=== PATIENT | female | born 1995 | race Caucasian/White ===

== ENCOUNTER 2016-12-20 09:29 | Inpatient (IN) | payer MEDICAID ==
[~2016-12-20] VITALS: Ht 177.8 cm; Wt 96.0 kg
--- NOTE | 2016-12-20 10:00 | NUR ---
PT PRESENTS TO THE ED WITH THE COMPLAINT OF BLQ ABDOMINAL PAIN WHICH IS PRESSURE LIKE IN QAULITY.
[2016-12-20 10:18] LABS: BASOPHIL % 0.1 % (0-2); PLATELET COUNT 275 x10^3mcL (130-400); RED CELL DISTRIBUTION WIDTH 13.9 % (11.5-14.5)
[2016-12-20 10:25] LABS: CALCIUM 8.7 mg/dL (8.5-10.1); CARBON DIOXIDE 29.6 mmol/L (21-32); CHLORIDE SERUM 106 mmol/L (98-107); CREATININE SERUM 0.9 mg/dL (0.6-1.0); GFR1 > 60 mL/min; GLUCOSE SERUM 114 mg/dL (74-106); POTASSIUM SERUM 4.1 mmol/L (3.5-5.1); SODIUM SERUM 142 mmol/L (136-145)
[2016-12-20 10:30] LABS: ALBUMIN 3.4 g/dL (3.4-5.0); ALKALINE PHOSPHATASE 82 U/L (46-116); ALT/SGPT 76 U/L (14-59); AST/SGOT 28 U/L (15-37); BILIRUBIN TOTAL 0.7 mg/dL (0.20-1.00); LIPASE 89 IU/L (73-393); TOTAL PROTEIN, SERUM 6.9 g/dL (6.4-8.2)
--- NOTE | 2016-12-20 10:33 | NUR ---
PT WENT TO AND FROM CT WITHOUT INCIDENCE
--- NOTE | 2016-12-20 11:54 | NUR ---
REPORT CALLED TO MARIEL JONES ON TELE UNIT AT THIS TIME
--- NOTE | 2016-12-20 12:15 | NUR ---
RECEIVED PT. FROM ER DEPT. A/A/O X4. NO SOB, NO N/V NOTED. DENIES ANY PAIN AT THIS TIME. IV H/L NOTED TO L AC. B/P= 140/69, P= 74, R.R.= 18, T= 99.9, O2 SAT.= 99% (RA). PT. STATED SHE WAS HAVING ABD. PAIN FOR 4 DAYS WITH N/V. SKIN INTACT. NO EDEMA NOTED. PT. IS PLACED ON TELE. MONITOR #[id number] SHOWING NSR. BED IN LOW POS., CALL LIGHT WITHIN REACH. SIDE RAILS UP X3.
[2016-12-20 12:31] LABS: microscopic required? NO
--- NOTE | 2016-12-20 12:40 | NUR ---
2% CHLORHEXIDINE BATH GIVEN PRIOR TO SURGERY.
[2016-12-20 12:55] LABS: urine erythrocyte NEGATIVE (NEGATIVE)
--- NOTE | 2016-12-20 12:57 | NUR ---
LACTIC ACID 2.1, DR CASTANEDA NOTIFIED VIA [facility], WILL FOLLOW UP. PRIMARY NURSE KAREN MADE AWARE.
[2016-12-20 13:09] LABS: AMPHETAMINE QUAL UR NONE DETECTED (NEG <=1000)
[2016-12-20 13:26] VITALS: BP 140/69
[2016-12-20 13:40] VITALS: Ht 177.8 cm; Wt 96.0 kg
[2016-12-20 14:39] LABS: FREE T4 1.08 ng/dL (0.76-1.46); FREE THYROXINE INDEX 2.2 ug/dL (1.4-4.5); T4(THYROXINE) 7.2 ug/dL (4.7-13.3)
[2016-12-20 14:40] LABS: CHOLESTEROL/HDL RATIO 2.9
--- NOTE | 2016-12-20 15:09 | NUR ---
PT. IS BEING TAKEN TO O.R. FOR SURGERY.
[2016-12-20 16:55] LABS: T3 TOTAL 1.29 ng/mL
--- NOTE | 2016-12-20 17:54 | NUR ---
RECEIVED PT. FROM RECOVERY DEPT. (PT. IS S/P LAP. APPENDECTOMY TODAY) AT THIS TIME. PT. APPEARS DROWSY. B/P= 136/83, P= 79, R.R.= 16, T= 98.3, O2 SAT.= 99% (WITH O2 AT 2L NC). ABD. BANDAGES X3 CDI. WILL CONTINUE TO MONITOR. MOTHER AT BEDSIDE. MOTHER WAS UPDATED ON PT.'S CONDITION.
[2016-12-20 18:31] VITALS: BP 142/81
--- NOTE | 2016-12-20 19:25 | NUR ---
RECEIVED PT IN BED ASLEEP BUT EASILY AROUSABLE. LUNGS CTA. NO SOB NOTED. BOWEL SOUNDS HYPOACTIVE. W/ BANDAID X3 TO SX SITES TO ABDOMEN. NO ACTIVE BLEEDING NOTED ON SX SITES. SHE HAS NO C/O PAIN AT THIS TIME. W/ IVF NS AT 140 CC/HR INFUSING VIA [facility]. CALL LIGHT W/IN REACH.
[2016-12-20 21:27] VITALS: BP 135/80
[2016-12-21 05:39] VITALS: BP 113/58
--- NOTE | 2016-12-21 06:09 | NUR ---
PT SLEPT THROUGH THE NIGHT. SHE WAS MEDICATED FOR PAIN X1 W/ RELIEF. SHE AMBULATES TO RESTROOM. PT STATED SHE IS NOT PASSING GAS YET NOR BURPING. NO EPISODE OF N/V. IVF NS AT 140 CC/HR INFUSING WELL VIA [facility]. ALL NEEDS ATTENDED TO.
[2016-12-21 06:37] LABS: BASOPHIL % 0.1 % (0-2); PLATELET COUNT 272 x10^3mcL (130-400)
[2016-12-21 07:18] LABS: CALCIUM 8.2 mg/dL (8.5-10.1); CARBON DIOXIDE 28.8 mmol/L (21-32); CHLORIDE SERUM 104 mmol/L (98-107); CREATININE SERUM 0.7 mg/dL (0.6-1.0); GFR1 > 60 mL/min; GLUCOSE SERUM 104 mg/dL (74-106); MAGNESIUM 1.8 mg/dL (1.8-2.4); PHOSPHOROUS 4.1 mg/dL (2.5-4.9); POTASSIUM SERUM 3.6 mmol/L (3.5-5.1); SODIUM SERUM 141 mmol/L (136-145)
--- NOTE | 2016-12-21 07:30 | NUR ---
RECEIVED PT. IN BED A/A/O X4. NO SOB, NO N/V NOTED. DENIES ANY PAIN AT THIS TIME. NS RUNNING AT 140 CC/HR. VIA IV H/L AT L AC. SCD TO BLE MAINTAINED. BED IN LOW POS., CALL LIGHT WITHIN REACH. SIDE RAILS UP X3.
--- NOTE | 2016-12-21 09:22 | NUR ---
DR. NELSON, THE RESIDENTS, CHARGE NURSE, AND ATTENDING NURSE AT BEDSIDE. CAREPLAN DISCUSSED WITH PT. ALL QUESTIONS ANSWERED.
[2016-12-21 10:20] VITALS: BP 121/72
--- NOTE | 2016-12-21 16:54 | NUR ---
REMAINS IN STABLE CONDITION AT THIS TIME. NO ACUTE DISTRESS NOTED.
[2016-12-21 17:52] VITALS: BP 110/61
--- NOTE | 2016-12-21 18:30 | NUR ---
PT. STATED SHE HAS BEEN PASSING GAS A FEW TIMES DURING THE SHIFT.
--- NOTE | 2016-12-21 19:25 | NUR ---
RECEIVED PT IN BED AWAKE, ALERT,ORIENTED X4. LUNGS CTA. BOWEL SOUNDS ACTIVE. SHE DENIED HAVING PAIN AT THIS TIME. PT TOLERATING REG. DIET . IVF NS AT 140 CC/HR INFUSING VIA [facility]. CALL LIGHT W/IN REACH.
[2016-12-21 20:14] VITALS: BP 100/53
--- NOTE | 2016-12-21 22:11 | NUR ---
IVF RATE CGANGED TO 50 CC/HR ORDERED.
[2016-12-22 05:36] VITALS: BP 116/69
[2016-12-22 06:37] LABS: BASOPHIL % 0.4 % (0-2); PLATELET COUNT 232 x10^3mcL (130-400); RED CELL DISTRIBUTION WIDTH 13.8 % (11.5-14.5)
[2016-12-22 06:41] LABS: CALCIUM 8.1 mg/dL (8.5-10.1); CARBON DIOXIDE 30.4 mmol/L (21-32); CHLORIDE SERUM 107 mmol/L (98-107); CREATININE SERUM 0.7 mg/dL (0.6-1.0); GFR1 > 60 mL/min; GLUCOSE SERUM 90 mg/dL (74-106); MAGNESIUM 1.9 mg/dL (1.8-2.4); PHOSPHOROUS 3.5 mg/dL (2.5-4.9); POTASSIUM SERUM 3.7 mmol/L (3.5-5.1); SODIUM SERUM 142 mmol/L (136-145)
--- NOTE | 2016-12-22 07:29 | NUR ---
PT SLEPT AT LONG INTERVALS. SHE WAS MEDICATED FOR PAIN X1 W/ RELIEF. PT TOLERATING REGULAR DIET. SHE IS BURPING AND PASSING GAS. NO BM NOTED. PT AMBULATED IN THE HALLWAY ONCE THIS SHIFT. IVF NS AT 50 CC/HR INFUSING WELL VIA [facility].
--- NOTE | 2016-12-22 07:45 | NUR ---
RECEIVED PATIENT FROM MARIEL CAMPOS AAOX4, ABLE TO COMMUNICATE AND FOLLOW COMMANDS, NO DISTRESS NOTED, AND DENIES CHEST PAIN. PALPABLE PULSES TO BUE/BLE. ON ROOM AIR, DENIES SOB, AND RESPIRAITONS EVEN AND UNLABORED, INSTRUCTED TO USE I.S DEVICE 10 TIMES PER HR WHILE AWAKE AND VERBALIZED UNDERSTANDING. DENIES N/V/D, S/P LAPAROSCOPIC APPENDECTOMY 12/20/16 WITH BANDAIDS X3 CDI, PASSING GAS AND BURPING BUT NO BM. VOIDS FREELY WITH BRP. DENIES PAIN. IV TO LAC CDI AND INFUSING NS AT 50ML/HR FREELY. BED TO LOWEST POSITION, SIDE RAILS UPX2, CALL LIGHT AND BELONGINGS WITHIN REACH, AND WILL CONTINUE TO MONITOR.
[2016-12-22 09:19] VITALS: BP 114/65
--- NOTE | 2016-12-22 10:45 | NUR ---
PATIENT C/O NAUSEA AND GIVE ZOFRAN 4MG IV Q4H PRN FOR NAUSEA, PATIENT ALSO C/O HEADACHE 01/31 AND ACHING ABD PAIN 12/01, NORCO 7.5/325 TAB PO Q4H PRN GIVEN FOR PAIN, NO DISTRESS NOTED, RESPIRATIONS EVEN AND UNLABORED, CALL LIGHT AND BELONGINGS WITHIN REACH, AND WILL CONTINUE TO MONITOR.
--- NOTE | 2016-12-22 12:00 | NUR ---
MADE AWARE OF PATIENT HAVING NAUSEA, HEADACHE, DIZZINESS, AND ABD PAIN AND GAVE ZOFRAN FOR NAUSEA AND NORCO FOR HEADACHE/ABD PAIN AT 1045 12/22/16, NO NEW ORDERS AND WILL CONTINUE TO MONITOR.
--- NOTE | 2016-12-22 13:12 | NUR ---
MADE AWARE OF PATIENT HAVING NAUSEA, HEADACHE, DIZZINESS, AND ABD PAIN TO ABD AND GAVE ZOFRAN FOR NAUSEA AND NORCO FOR HEADACHE/ABD PAIN AT 1045 12/22/16, NO NEW ORDERS AND WILL CONTINUE TO MONITOR.
--- NOTE | 2016-12-22 15:00 | NUR ---
PATIENT AMULATED DOWN HALLWAY WITH SLOW STEADY GAIT, BUT HALF WAY PATIENT FELT WEAK AND TIRED HAD TO PLACE PATIENT ON CHAIR DUE TO PATIENT FEELING WEAK, THEN ASSISTED PATIENT BACK TO BED, PATIENT FELT DIZZY AND HAD HEADACHE AFTER AMULATING, WILL MEDICATE WITH TYLENOL FOR HEADACHE AND PAGE , CALL LIGHT WITHIN REACH, MOTHER AT BEDSIDE AND WILL CONTINUE TO MONITOR.
--- NOTE | 2016-12-22 15:25 | NUR ---
PATIENT C/O HEADACHE 04/02 TYLENOL 650MG PO Q6H PRN GIVEN FOR HEADACHE, NO DISTRESS NOTED RESPIRATIONS EVEN AND UNLABORED, PATIENT ALSO SAID SHE FELT DIZZY WHEN AMULATING, PAGED, CALL LIGHT AND BELONGINGS WITHIN REACH, AND WILL CONTINUE TO MONITOR.
--- NOTE | 2016-12-22 15:55 | NUR ---
MADE AWARE PATIENT AMULATED DOWN HALLWAY WITH SLOW STEADY GAIT, BUT HALF WAY PATIENT FELT WEAK AND TIRED HAD TO PLACE PATIENT ON CHAIR DUE TO PATIENT FEELING WEAK, THEN ASSISTED PATIENT BACK TO BED, PATIENT FELT DIZZY AND HAD HEADACHE AFTER AMULATING, MEDICATED WITH TYLENOL FOR HEADACHE, ALSO PATIENT HAD NOT HAD A BM, SAID HE WILL ORDER DOCULAX, AWAITING ORDERS AND WILL CONTINUE TO MONITOR.
[2016-12-22 17:30] VITALS: BP 121/72
--- NOTE | 2016-12-22 18:43 | NUR ---
PATIENT SITTING UP IN BED AAOX4, NO DISTRESS NOTED, RESPIRATIONS EVEN AND UNLABORED, SURGICAL INCISIONS X3 TO ABD CDI, IV TO LAC CDI, CALL LIGHT AND BELONGINGS WITHIN REACH, MOTHER AT BEDSIDE, AND WILL ENDORSE TO NIGHT NURSE.
--- NOTE | 2016-12-22 20:03 | NUR ---
RECEIVED PATIENT FROM AM RN-ALEX. PATIENT QUIETLY RESTING IN BED AT THIS TIME. NO S/SX OF DISTRESS NOTED. IS DEVICE BY BEDSIDE AND ENCOURAGE USE. SCDS IN PLACE AND PATIENT ABLE TO AMBULATE WITH MINIMAL ASSIST, ENCOURAGE AMBULATATION IF ABLE TO TOLERATE. LUNG SOUNDS CLEAR, DENIES ANY SOB. BOWEL SOUNDS ACTIVE, DENIES ANY PAIN TO ABD S/P LAP APPY AT THIS TIME, BANDAIDS X3 CDI, NO INFECTION, DRAINING NOTED. DENIES ANY NAUSEA OR VOMITING. VERBALIZES HAVING PASSED GAS AND HAVING ONLY SMALL FORMED BM EARLIER TODAY. IVF INFUSING TO LAC AT 50ML/HR NS. FAMILY MEMBER BY BEDSIDE. CALL LIGHT WITHIN REACH.
[2016-12-22 22:08] VITALS: BP 106/60
--- NOTE | 2016-12-23 02:00 | NUR ---
SAFETY ROUNDS MADE, NO S/SX OF DISTRESS NOTED. ALL SAFETY MEASURES IN PLACE AND CALL LIGHT WITHIN REACH.
[2016-12-23 05:38] VITALS: BP 103/47
[2016-12-23 06:11] LABS: BASOPHIL % 0.4 % (0-2); PLATELET COUNT 262 x10^3mcL (130-400); RED CELL DISTRIBUTION WIDTH 13.8 % (11.5-14.5)
[2016-12-23 06:24] LABS: CALCIUM 8.5 mg/dL (8.5-10.1); CARBON DIOXIDE 28.9 mmol/L (21-32); CHLORIDE SERUM 104 mmol/L (98-107); CREATININE SERUM 0.7 mg/dL (0.6-1.0); GFR1 > 60 mL/min; GLUCOSE SERUM 91 mg/dL (74-106); POTASSIUM SERUM 3.8 mmol/L (3.5-5.1); SODIUM SERUM 143 mmol/L (136-145)
--- NOTE | 2016-12-23 07:30 | NUR ---
A/O X4. CLEAR SPEECH. FOLLOW COMMANDS. ON MED SURG HR 65. RADIAL AND PEDAL PULSES PALPABLE. NO EDEMA OR SWELLING NOTED. <3 SECS CAP REFILL. ON RA SAT 98%. BREATING EVEN AND UNLABORED. CLEAR LUNG SOUNDS. NO NVD. VOIDING ADEQUATELY. AMBULATORY WITH STEADY GAIT. S/P LAP APPY. YANG AND DRESSING INTACT. DENIES PAIN THIS TIME. IV SITE INTACT ON LAC. NS INFUSING WELL AT 50 ML/HR. WILL CONTINUE TO MONITOR. CALL LIGHT WITHIN REACH.
--- NOTE | 2016-12-23 07:32 | NUR ---
PROVIDED BEDSIDE REPORT TO DENIS. NO DISTRESS NOTED.
--- NOTE | 2016-12-23 09:06 | NUR ---
TOOK MEDS WITHOUT DIFFICULTY. DENIES PAIN AT THIS TIME. WILL CONTINUE TO MONITOR.
[2016-12-23 10:26] VITALS: BP 117/66
--- NOTE | 2016-12-23 11:44 | NUR ---
SPOKE TO DR MEYER REGARDING WBC 12.2.
--- NOTE | 2016-12-23 12:10 | NUR ---
Pt AMBULATING ACROSS THE HALLWAY. DENIES DIZZINESS. STEADY GAIT.
[2016-12-23 13:51] VITALS: BP 117/66
[2016-12-23] MEDS ORDERED: COL100 PO (13:51)
[2016-12-23] MEDS ORDERED: APAP/HYDROCODON1 T13 PO (13:51)
--- NOTE | 2016-12-23 14:51 | NUR ---
FAMILY AT BEDSIDE. NO DISTRESS NOTED. WILL CONTINUE TO MONITOR.
--- NOTE | 2016-12-23 15:17 | NUR ---
DC INSTRUCTION AND SCRIPT GIVEN. VERBALIZE UNDERSTANDING. IV SITE INTACT AND DCD. NO TELEBOX.
--- NOTE | 2016-12-23 15:39 | NUR ---
Pt ESCORTED DOWN THE LOBBY.
== END 2016-12-23 15:39 | disposition home or self-care (01) | DRG 225 ==
LOC: ED 09:29 → MU 11:27 → DU 11:27 → MU 17:04
PROVIDERS: Emergency Medicine; Surgery; ADMIT Family Medicine
PROC: 0DTJ4ZZ Resection of Appendix, Percutaneous Endoscopic Approach (ICD-10-PCS; principal; 2016-12-20 14:30)
DX: K35.80 Unspecified acute appendicitis (principal); E44.0 Moderate protein-calorie malnutrition; E83.51 Hypocalcemia; E66.9 Obesity, unspecified; D64.9 Anemia, unspecified; Z68.32 Body mass index [BMI] 32.0-32.9, adult
CPT/HCPCS: 80307; 83880; 84439; 94150; J0690; J0696; J1170; J2250; J2405; J2543; J3010; J3490; J7030; Q0092; Q0162